=== PATIENT | male | born 2000 | race Caucasian/White ===

== ENCOUNTER → 2020-07-02 | Outpatient (CLI) | payer OTHER ==
[2020-07-04 20:37] LABS: CORONAVIRUS (COVID19) CSH-NRL Negative (Negative)
== END | disposition home or self-care (01) ==
LOC: LAB SHORT 17:45 → LAB 17:45
PROVIDERS: Chiropractor
DX: B34.9 Viral infection, unspecified (principal); Z20.828 Contact with and (suspected) exposure to other viral communicable diseases
CPT/HCPCS: U0003

== ENCOUNTER 2025-05-15 07:52 | Emergency (ER) | payer OTHER ==
[~2025-05-15] VITALS: Ht 167.6 cm; Wt 143.8 kg
[~2025-05-15 07:52] MED LIST changes: -HYDR1TAB94 PO; -ONDA4ODT MM; -TAMS.4ER PO
[2025-05-15] MEDS ORDERED: Ondansetron HCl 2 MG / ML 2ML Vial IV ONE (08:30)
[2025-05-15] MEDS ORDERED: Ketorolac Tromethamine 30mg Vial IV ONE (08:35)
[2025-05-15 08:53] LABS: BASOPHILS ABSOLUTE AUTO 0.04 K/mm3 (0.00-0.23); BASOPHILS PERCENT AUTO 0 % (0-2); EOSINOPHILS ABSOLUTE AUTO 0.10 K/mm3 (0.00-0.68); EOSINOPHILS PERCENT AUTO 1 % (0-6); Hematocrit 44.2 % (37.0-53.0); Hemoglobin 14.8 g/dL (13.5-17.5); IMMATURE GRAN ABSOLUTE AUTO 0.03 K/mm3 (0.00-0.10); IMMATURE GRAN PERCENT AUTO 0 % (0-1); LYMPHOCYTES ABSOLUTE AUTO 2.80 K/mm3 (0.84-5.20); LYMPHOCYTES PERCENT AUTO 27 % (21-46); MONOCYTES ABSOLUTE AUTO 0.49 K/mm3 (0.16-1.47); MONOCYTES PERCENT AUTO 5 % (4-13); Mean Corpuscular HGB Conc 33.5 g/dL (31.5-36.5); Mean Corpuscular Volume 85 fL (80-100); NEUTROPHILS ABSOLUTE AUTO 7.08 K/mm3 (1.96-9.15); NEUTROPHILS PERCENT AUTO 67 % (41-73); NRBC ABSOLUTE 0.00 K/mm3 (0.00-0.02); NRBC Auto 0.0 /100 WBC (0.0-0.2); Platelet Count 279 K/mm3 (150-400); RDW Coefficient Variation 13.2 % (11.7-14.2); RDW Standard Deviation 40.6 fL (35.1-46.3)
[2025-05-15 08:59] LABS: Source, Urine Clean Catch
[2025-05-15 09:05] LABS: Color, Urine Yellow (P-Yellow); Glucose Qualitative, Urine Neg (Neg); Ketones, Urine 1+ (Neg); Leukocyte Esterase, Urine 1+ (Neg); Protein, Urine 3+ (Neg); Specific Gravity, Urine 1.030 (1.003-1.022); Urobilinogen, Urine 1+ (Normal)
[2025-05-15 09:09] LABS: Bilirubin, Urine 1+ (Neg)
[2025-05-15 09:12] LABS: Red Blood Cells, Urine 50-100 /hpf (0-2)
[2025-05-15] MEDS ORDERED: HYDROmorphone HCl/Pf 1MG SYR IV ONE ×2 (09:35→11:10)
[2025-05-15 10:04] LABS: Alanine Aminotransfer (ALT/SGP 185.0 U/L (12-78); Albumin, Blood 4.4 g/dL (3.4-5.0); Albumin/Globulin Ratio 1.2 (0.8-1.8); Aspartate Aminotrans (AST/SGOT 65.0 U/L (12-37); Bilirubin, Total 0.7 mg/dL (0.1-1.0); Blood Urea Nitrogen 11.0 mg/dL (8-24); CO2, Blood 26.0 mmol/L (21-32); Calcium, Blood 9.1 mg/dL (8.5-10.1); Creatinine, Blood 0.85 mg/dL (0.60-1.20); Globulin, Blood 3.7 g/dL (2.2-4.0); Glucose, Blood 123.0 mg/dL (70-99); Total Protein, Blood 8.1 g/dL (6.4-8.2)
[2025-05-15 10:55] LABS: Anion Gap 10.0 mmol/L (3-11); Chloride, Blood 103.0 mmol/L (98-108); Potassium, Blood 3.3 mmol/L (3.5-5.5); Sodium, Blood 136.0 mmol/L (136-145)
[2025-05-15] MEDS ORDERED: ONDA4ODT MM (12:11)
[2025-05-15] MEDS ORDERED: HYDR1TAB94 PO (12:11)
[2025-05-15] MEDS ORDERED: TAMS.4ER PO (12:11)
[2025-05-15 12:30] VITALS: BP 146/99
== END 2025-05-15 12:48 | disposition home or self-care (01) ==
LOC: ER 07:52
PROVIDERS: Student in an Organized Health Care Education/Training Program
DX: N13.2 Hydronephrosis with renal and ureteral calculous obstruction (principal); E87.6 Hypokalemia; R74.01 Elevation of levels of liver transaminase levels; Z87.891 Personal history of nicotine dependence
CPT/HCPCS: 74177; 80053; 81001; 83690; 83735; 85025; 87086; 96361; 96374-59; 96375; 96376; 99284-25; A9270; J1171; J1885; J2405; J7120; Q9967

== ENCOUNTER → 2025-05-15 | Outpatient (CLI) | payer OTHER ==
[~2025-05-15] MED LIST: Bactrim Ds Tab1 EACH PO; CEPH500 PO; HYDR1TAB94 PO; ONDA4ODT MM; TAMS.4ER PO
== END ==
LOC: LAB 09:51 → LAB SHORT 09:51
DX: R10.9 Unspecified abdominal pain (principal)
CPT/HCPCS: 87086

== ENCOUNTER 2025-05-17 02:16 | Emergency (ER) | payer OTHER ==
[~2025-05-17] VITALS: Ht 167.6 cm; Wt 143.8 kg
[~2025-05-17 02:16] MED LIST changes: +HYDR1TAB94 PO; +ONDA4ODT MM; +TAMS.4ER PO
[2025-05-17 02:20] VITALS: BP 145/83
== END 2025-05-17 02:41 | disposition home or self-care (01) ==
LOC: ER 02:16
DX: N20.0 Calculus of kidney (principal); Z79.899 Other long term (current) drug therapy; Z87.891 Personal history of nicotine dependence
CPT/HCPCS: 99284